=== PATIENT | female | born 1990 | race African-American/Black ===

== ENCOUNTER 2018-10-21 15:34 | Emergency (ER) | payer SELFPAY, MEDICAID ==
[~2018-10-21] VITALS: Ht 165.1 cm; Wt 54.4 kg
--- NOTE | 2018-10-21 16:10 | NUR ---
ED Nurse Note: PT BROUGHT IN [employer], PT HAS RIGHT ELBOW PAIN 8/10 AND BRONCHITIS. PT IS COUGHING, AOX 4, PT ABLE TO TALK WITH DIFFICULTY BREATHING. patient is here for a fci clearance
[2018-10-21 16:15] VITALS: BP 115/78
[2018-10-21] MEDS ORDERED: Bacitracin Oint UD TOPIC ONE ×2 (16:33→16:45)
[2018-10-21] MEDS ORDERED: Tetanus/Diptheria/Pertussis Vaccine 0.5ml Syr IM ONE (16:45)
--- NOTE | 2018-10-21 17:08 | Diagnostic Imaging Report ---
Indications:Right elbow pain Technique: Three or 4 views of the right elbow Comparison: None Findings: No acute fractures. No dislocations. The joint spaces are preserved. No evidence of joint effusion. Impression: Negative
--- NOTE | 2018-10-21 17:55 | Emergency Room Report ---
History of Present Illness General Chief Complaint: Pain Source: Patient Present Illness HPI 27-year-old female presents to the emergency department for medical clearance for incarceration. The patient is complaining of posterior right elbow pain with associated open wound. She reports her pain is 8 out of 10 in severity that is localized it does not radiate she is not taking any medication for her pain denies previous injuries to this extremity he reports tenderness as well as pain with attempts to move the right arm. Denies numbness tingling or loss of sensation or gross motor movements of the extremities. Denies hitting her head she denies loss of consciousness he denies midline neck or back pain. She also reports history of bronchitis/asthma she states that she is out of her inhaler at home she denies shortness of breath at this time denies dyspnea. She states she does not know when her last tetanus vaccination was. Denies taking blood thinning medications. Allergies: Coded Allergies: No Known Allergies (Unverified , 10/21/18) Patient History Past Medical History: see triage record, asthma Past Surgical History: none Pertinent Family History: none Last Menstrual Period: UNK Now: No Reviewed Nursing Documentation: PMH: Agreed; PSxH: Agreed Nursing Documentation-PMH Past Medical History: No History, Except For Review of Systems All Other Systems: negative except mentioned in HPI Physical Exam Vital Signs Date Time Temp Pulse Resp B/P (MAP) Pulse Ox O2 Delivery O2 Flow Rate FiO2 10/21/18 16:07 98.4 100 16 108/74 97 Room Air Sp02 EP Interpretation: reviewed, normal General Appearance: no apparent distress, alert, GCS 15, non-toxic Head: normocephalic, atraumatic Eyes: bilateral eye normal inspection, bilateral eye PERRL ENT: hearing grossly normal, normal voice Neck: full range of motion Respiratory: chest non-tender, lungs clear, normal breath sounds, no respiratory distress, no wheezing, speaking full sentences Cardiovascular #1: regular rate, rhythm, normal capillary refill Gastrointestinal: non tender, soft Musculoskeletal: back normal, gait/station normal, normal range of motion, tender - right posterior elbow, mild swelling, no obvious deformity. Neurologic: alert, oriented x3, responsive, motor strength/tone normal, sensory intact, speech normal, grossly normal Psychiatric: judgement/insight normal Skin: normal color, no rash, warm/dry, well hydrated, abrasions - right posterior elbow. Medical Decision Making PA Attestation Dr. Stanford is my supervising Physician whom patient management has been discussed with. Diagnostic Impression: Primary Impression: Contusion of right elbow Qualified Codes: S50.01XA - Contusion of right elbow, initial encounter Additional Impressions: Abrasion Medication refill Medical clearance for incarceration ER Course 27-year-old female presents to the emergency department for medical clearance for incarceration. The patient is complaining of posterior right elbow pain with associated open wound. She reports her pain is 8 out of 10 in severity that is localized it does not radiate she is not taking any medication for her pain denies previous injuries to this extremity he reports tenderness as well as pain with attempts to move the right arm. Denies numbness tingling or loss of sensation or gross motor movements of the extremities. Denies hitting her head she denies loss of consciousness he denies midline neck or back pain. She also reports history of bronchitis/asthma she states that she is out of her inhaler at home she denies shortness of breath at this time denies dyspnea. She states she does not know when her last tetanus vaccination was. Denies taking blood thinning medications. Ddx considered but are not limited to Head Trauma, AK, ACS, SI/HI, URI, SAH, Fractures, Dislocations, Tazer barbs, Abrasions. Vital signs: are WNL, pt. is afebrile H&PE are most consistent with: Right elbow MSK injury with superficial abrasion - not grossly contaminated. no evidence of head injury,or spinal chord injury. ORDERS: X-ray Right elbow 3 views: negative for acute fx or d/l ED INTERVENTIONS: -Tylenol PO -TDap DISCHARGE: At this time pt. is stable for d/c to law enforcement. Will provide printed patient care instructions, and any necessary prescriptions. Care plan and follow up instructions have been discussed with the patient prior to discharge. Other X-Ray Diagnostic Results Other X-Ray Diagnostic Results : X-Ray ordered: Right elbow # of Views/Limited Vs Complete: 3 View Indication: Pain EP Interpretation: Yes PA Xray: Interpretation reviewed, by supervising MD, and agrees with findings. Interpretation: no soft tissue swelling, no fractures Impression: No acute disease Electronically Signed by: Malena Richard PA-C Last Vital Signs Date Time Temp Pulse Resp B/P (MAP) Pulse Ox O2 Delivery O2 Flow Rate FiO2 10/21/18 16:07 98.4 100 16 108/74 97 Room Air Disposition: D/C TO [employer] IN [facility] Condition: Stable Referrals: NOT CHOSEN IPA/MD,REFERRING (PCP) Departure Forms: Assisted Clearance Patient Instructions: Abrasion, [id number], Contusion, [id number], Medical Screening Exam Additional Instructions: Take medications as directed. Follow up with a Primary Care Provider in 3-5 days, even if your symptoms have resolved. --Please review list of primary care clinics, if you do not already have a primary care provider Return sooner to ED if new symptoms occur, or current symptoms become worse. - Please note that this Emergency Department Report was dictated using [employer] assistant technology software, occasionally this can lead to erroneous entry secondary to interpretation by the dictation equipment. Malena Richard Oct 21, 2018 17:55
[2018-10-21] MEDS ORDERED: ALBUTEROL SULF8.5 GM INH (17:56)
[2018-10-21] MEDS ORDERED: BACITRACIN-P28.35 GM TP (17:56)
[2018-10-21 18:10] VITALS: BP 117/80
--- NOTE | 2018-10-21 18:10 | NUR ---
ED Nurse Note: Patient is leaving with [employer] and is ok to book, all belongings sent home with patient
== END 2018-10-21 18:10 ==
LOC: EMR 16:25
DX: M25.521 Pain in right elbow (principal); S50.01XA Contusion of right elbow, initial encounter; S50.311A Abrasion of right elbow, initial encounter; J45.909 Unspecified asthma, uncomplicated; F17.200 Nicotine dependence, unspecified, uncomplicated; J40 Bronchitis, not specified as acute or chronic; Z23 Encounter for immunization; Z76.0 Encounter for issue of repeat prescription; X58.XXXA Exposure to other specified factors, initial encounter; Y92.9 Unspecified place or not applicable
CPT/HCPCS: 90471; 90715; 99283